=== PATIENT | female | born 1955 | race Caucasian/White ===

== ENCOUNTER 2016-06-03 11:21 | Emergency (ER) | payer MEDICARE ==
[~2016-06-03] VITALS: Ht 162.6 cm; Wt 66.0 kg
[2016-06-03 11:22] VITALS: BP 147/77; PULSE 69; RESP 14; TEMP 98.6; O2SAT 98
[2016-06-03] MEDS ORDERED: PRED-503 PO (11:43)
--- NOTE | 2016-06-03 11:44 | PD ---
HPI Chief Complaint: Skin Problem Time Seen by Provider: 11:42 Travel History International Travel<30 days: No Contact w/Intl Traveler<30days: No Traveled to known affect area: No History of Present Illness HPI 60-year-old female presents to the emergency Department with complaint of areas of rashes that come and go for the past 3 weeks. The rash is currently to the back of her neck, left forearm and bilateral flanks under Bra strap. She says she's had areas to her back, lower extremities, and hands. She says the rash is itchy. Denies fever, chills, nausea, vomiting. Denies new exposure to lotions, soaps, detergents, foods, environmental exposures. Denies airway edema , stridor, wheezing. Denies chest pain, shortness of breath. She has taken Benadryl with good relief. She thought they would resolve on their own seeing her later and has not. She was told to be evaluated by pharmacist. Allergies to latex. No other modifying factors or associated signs and symptoms. PFSH Past Medical History Hx Anticoagulant Therapy: Yes (81 MG ASPIRIN) Past Surgical History Hysterectomy: Yes Social History Tobacco Use: No Allergies-Medications (Allergen,Severity, Reaction): Coded Allergies: Latex (Verified Allergy, Severe, Rash, 06/03/16) Reported Meds & Prescriptions Reported Meds & Active Scripts Active Deltasone (Prednisone) 20 Mg Tab 40 Mg PO DAILY 5 Days Review of Systems Except as stated in HPI: all other systems reviewed are Neg Physical Exam Narrative GENERAL: Well-nourished, well-developed female patient, in no acute distress; afebrile, nontoxic-appearing SKIN: Warm and dry. Small area of maculopapular rash to posterior, left neck, left forearm, and bilateral flank areas under the bra line. All areas are without signs of infection. HEAD: Atraumatic. Normocephalic. EYES: Pupils equal and round. No scleral icterus. No injection or drainage. PERRLA. ENT: Mucosa pink and moist. No erythema or exudates. Airway patent. EARS: Bilateral pinnae and external canals appear within normal limits. NECK: Trachea midline. No lymphadenopathy. CARDIOVASCULAR: Regular rate and rhythm. No murmur appreciated. RESPIRATORY: No accessory muscle use. Clear to auscultation. Breath sounds equal bilaterally. GASTROINTESTINAL: Abdomen soft, non-tender, nondistended. Hepatic and splenic margins not palpable. Bowel sounds are active 4 quadrants. MUSCULOSKELETAL: No obvious deformities. No clubbing. No cyanosis. No edema. NEUROLOGICAL: Awake and alert. Oriented 3. No obvious cranial nerve deficits. Motor grossly within normal limits. Normal speech. Moves all extremities. 5/5 strength to all extremities. PSYCHIATRIC: Appropriate mood and affect; insight and judgment normal. Data Data Last Documented VS Vital Signs Date Time Temp Pulse Resp B/P Pulse Ox O2 Delivery O2 Flow Rate FiO2 06/03/16 11:22 98.6 69 14 147/77 98 MDM Medical Decision Making Medical Screen Exam Complete: Yes Emergency Medical Condition: Yes Medical Record Reviewed: Yes Differential Diagnosis Hives, acute rash, nonspecific rash, contact dermatitis Narrative Course 60-year-old female with a nonspecific skin eruption. Appears to be consistent with hives. Patient denies any new exposures, foods, medications. She is afebrile and nontoxic-appearing. Denies shortness of breath or airway edema. Deltasone prescribed for home. Instructed patient follow-up with dermatology as needed. Patient verbalizes understanding and agreement with treatment plan. Patient is medically cleared and stable for discharge. Discussed reasons to return to the emergency department. Instructed patient to follow up with primary care provider. Patient agrees with treatment plan. The patients vital signs are stable and the patient is stable for outpatient follow-up and treatment. Patient discharged home, stable and in no acute distress. Diagnosis Primary Impression: Rash and nonspecific skin eruption Referrals: District Resource Officer Primary Care Physician Patient Instructions: Acute Rash (ED), General Instructions Additional Instructions: Take prednisone as prescribed [id number] topicals to reduce itch Benadryl as directed and as needed to reduce itch Follow-up with your primary care provider Return to the emergency department immediately with worsening of symptoms Med/Other Pt SpecificInfo: Prescription(s) given Scripts Prednisone (Deltasone)20 Mg Tab40 Mg PO DAILY 5 Days Ref 0 Prov:Brandy Marcos 06/03/16 Disposition: 01 DISCHARGE HOME Condition: Stable Brandy Marcos Jun 03, 2016 11:44
== END 2016-06-03 12:16 | disposition home or self-care (01) ==
LOC: NEPK 11:21
DX: R21 Rash and other nonspecific skin eruption (principal); Z79.82 Long term (current) use of aspirin
CPT/HCPCS: 99282